=== PATIENT | female | born 1955 | race African-American/Black ===

== ENCOUNTER 2024-04-27 13:15 | Inpatient (IN) | payer MEDICARE, MEDICAID ==
[~2024-04-27] VITALS: Ht 162.6 cm; Wt 69.9 kg
[~2024-04-27 13:15] MED LIST: ASPI-1406 PO; ATOR40TA70 MT; CINA30 PO; HYDR-4001 MT; SEVE800T8 PO
[2024-04-27 14:47] LABS: CHLORIDE 101 mEq/L (98-107); SODIUM 143 mEq/L (136-145)
[2024-04-27 14:48] LABS: CARBON DIOXIDE 37 mEq/L (21-32)
[2024-04-27 14:49] LABS: CALCIUM 9.2 mg/dL (8.7-10.4)
[2024-04-27 14:51] LABS: BASOPHILS % 0.7 % (0.0-2.0); DIFFERENTIAL COMMENT 0; EOSINOPHILS % 4.1 % (0.0-5.0); LYMPHOCYTES % 10.4 % (20.0-50.0); MEAN CORPUSCULAR HGB CONC 31.2 g/dL (31.0-37.0); MEAN PLATELET VOLUME 9.7 fl (7.4-10.4); MONOCYTES % 11.9 % (2.0-8.0); NEUTROPHILS % 72.9 % (40.0-76.0); PLATELET 109 x1000/uL (130-400); RED BLOOD CELL COUNT 1.91 mill/uL (4.2-5.4); RED CELL DISTRIBUTION WIDTH 20.3 % (11.6-14.6); WHITE BLOOD COUNT 3.9 x1000/uL (4.5-11.0)
[2024-04-27 14:53] LABS: GLUCOSE 101 mg/dL (70-105)
[2024-04-27 14:54] LABS: HEMATOCRIT. 20.8 % (36.0-48.0); HEMOGLOBIN. 6.5 g/dL (12.0-16.0); UREA NITROGEN BLOOD 80 mg/dL (9-23)
[2024-04-27 14:55] LABS: ALANINE AMINOTRANSFERASE 13 IU/L (10-49); ALBUMIN 3.5 g/dL (3.2-4.8); ASPARTATE AMINOTRANSFERASE 21 IU/L (<34)
[2024-04-27 14:56] LABS: BILIRUBIN TOTAL 0.2 mg/dL (0.1-1.0); PROTEIN TOTAL 5.5 g/dL (6.0-8.3)
[2024-04-27 15:04] LABS: BILIRUBIN DIRECT < 0.1 mg/dL (<=3.0); CREATININE 10.8 mg/dL (0.6-1.0)
[2024-04-27] MEDS ORDERED: NITROGLYCERIN 0.4MG TABLET SL SL PRN (17:45)
[2024-04-27] MEDS ORDERED: GUAIFENESIN 200MG/10ML SUGAR FREE UDC PO PRN (17:45)
[2024-04-27] MEDS ORDERED: DOCUSATE SODIUM 100MG CAPSULE PO PRN (17:45)
[2024-04-27] MEDS ORDERED: IPRATROPIUM/ALBUTEROL 0.5-3(2.5)MG/3ML NEB HHN PRN (17:45)
[2024-04-27] MEDS ORDERED: CLONIDINE 0.1MG TABLET PO PRN (17:45)
[2024-04-27] MEDS ORDERED: ACETAMINOPHEN 325MG TABLET PO PRN ×2 (17:45)
[2024-04-27] MEDS ORDERED: ONDANSETRON HCL 4MG/2ML INJ IV PRN (17:45)
[2024-04-27 17:59] LABS: HEPATITIS B SURFACE ANTIGEN NEGATIVE (Negative)
[2024-04-27 18:20] LABS: HEPATITIS A AB IGM NEGATIVE (Negative); HEPATITIS B CORE AB IGM NEGATIVE (Negative)
[2024-04-27 18:21] LABS: HEPATITIS C AB NON REACTIVE (Neg) (Negative)
[2024-04-27 18:44] LABS: IRON 85 ug/dL (50-170)
[2024-04-27 18:45] LABS: TRIGLYCERIDE 83 mg/dL (0-150)
[2024-04-27 18:46] LABS: LDL CHOLESTEROL 45 mg/dL (5-100)
[2024-04-27 18:47] LABS: CHOLESTEROL 130 mg/dL (<200); HDL CHOLESTEROL 65 mg/dL (>65); PHOSPHORUS 4.6 mg/dL (2.5-4.9); TOTAL IRON BINDING CAPACITY 242 ug/dl (250-425)
[2024-04-27 18:50] LABS: FERRITIN 221 ng/mL (10-291); FOLIC ACID (FOLATE) SERUM > 20.00 ng/mL (>5.38); VITAMIN B12 SERUM 555 pg/mL (211-911)
[2024-04-27] MEDS: ATORVASTATIN CALCIUM 40MG TABLET PO SCH (23:02)
[2024-04-27] MEDS: EPOETIN ALFA-EPBX 4,000 UNIT/ML VIAL SUBCUT SCH (23:03)
[2024-04-28] VITALS (23 sets, daily range): BP systolic 70–174; BP diastolic 35–83; PULSE 55–94; RESP 10–20; TEMP 35.89176–37.00296; O2SAT 98–100
[2024-04-28] MEDS ORDERED: CINA90TA4 PO (05:48)
[2024-04-28] MEDS ORDERED: ZOLP10TA2 PO (05:49)
[2024-04-28] MEDS ORDERED: APIX2.5T PO (05:51)
[2024-04-28] MEDS ORDERED: FOLI-43 PO (05:52)
[2024-04-28] MEDS ORDERED: FOLI0.8T53 PO (05:53)
[2024-04-28 07:26] LABS: CALCIUM 9.6 mg/dL (8.7-10.4); CHLORIDE 101 mEq/L (98-107); POTASSIUM 5.3 mEq/L (3.5-5.1); SODIUM 139 mEq/L (136-145)
[2024-04-28 07:27] LABS: CARBON DIOXIDE 29 mEq/L (21-32)
[2024-04-28 07:28] LABS: CREATINE KINASE MB FRACTION 3.3 ng/mL (0.5-3.6)
[2024-04-28 07:32] LABS: GLUCOSE 80 mg/dL (70-105); UREA NITROGEN BLOOD 80 mg/dL (9-23)
[2024-04-28 07:44] LABS: HEMATOCRIT 26.4 % (36.0-48.0); HEMOGLOBIN 8.3 g/dL (12.0-16.0); MEAN CORPUSCULAR HEMOGLOBIN 33.7 pg (28.0-32.0); MEAN CORPUSCULAR HGB CONC 31.5 g/dL (31.0-37.0); PLATELET 109 x1000/uL (130-400); RED BLOOD CELL COUNT 2.47 mill/uL (4.2-5.4); RED CELL DISTRIBUTION WIDTH 23.2 % (11.6-14.6); WHITE BLOOD COUNT 3.8 x1000/uL (4.5-11.0)
[2024-04-28] MEDS ORDERED: LIDOCAINE HCL 1% 10 MG/ML 10ML VIAL ONE (07:57)
[2024-04-28 08:04] LABS: CREATININE 11.8 mg/dL (0.6-1.0)
[2024-04-28 08:05] LABS: TROPONIN I HIGH SENSITIVITY 42 ng/L (3.0-34)
[2024-04-28 08:10] LABS: PROTHROMBIN TIME 10.7 sec (9.6-11.0)
[2024-04-28] MEDS: FENTANYL CITRATE/PF 50MCG/ML 2ML VIAL IV SCH (09:00)
[2024-04-28] MEDS: CEFAZOLIN 1000MG PREMIX 50 ML IV ONE (09:00)
[2024-04-28] MEDS ORDERED: FENTANYL CITRATE/PF 50MCG/ML 2ML VIAL ONE (09:14)
[2024-04-28] MEDS: ASPIRIN 81MG TABLET PO SCH (10:43)
[2024-04-28] MEDS: CINACALCET HCL 30MG TABLET PO SCH (10:43)
[2024-04-28 13:08] LABS: CREATINE KINASE MB FRACTION 3.2 ng/mL (0.5-3.6)
[2024-04-29 00:05] VITALS: BP 156/50; PULSE 71; RESP 18; TEMP 36.61404; O2SAT 96
[2024-04-29 04:01] VITALS: BP 104/61; PULSE 70; RESP 20; TEMP 36.72516; O2SAT 100
[2024-04-29 08:00] VITALS: BP 131/59; PULSE 70; RESP 18; TEMP 36.61404; O2SAT 98
[2024-04-29 12:00] VITALS: BP 153/53; PULSE 67; RESP 18; TEMP 36.3918; O2SAT 97
[2024-04-29 12:15] LABS: POTASSIUM 4.6 mEq/L (3.5-5.1)
[2024-04-29 12:16] LABS: CALCIUM 9.3 mg/dL (8.7-10.4)
[2024-04-29 12:45] LABS: CREATININE 11.6 mg/dL (0.6-1.0)
[2024-04-29 16:00] VITALS: BP 140/60; PULSE 71; RESP 18; TEMP 36.3918; TEMP 36.39180; O2SAT 97
[2024-04-29 17:13] VITALS: BP 140/71; PULSE 60; TEMP 97.5; O2SAT 97
== END 2024-04-29 18:00 | disposition home or self-care (01) | DRG 466 ==
LOC: ER 13:15 → 8WST 23:24
PROVIDERS: ADMIT Hospitalist; ATTEND Hospitalist
PROC: 30233N1 Transfusion of Nonautologous Red Blood Cells into Peripheral Vein, Percutaneous Approach (ICD-10-PCS; 2024-04-27)
PROC: 0JPWXXZ Removal of Tunneled Vascular Access Device from Lower Extremity Subcutaneous Tissue and Fascia, External Approach (ICD-10-PCS; principal; 2024-04-28)
PROC: 0JH63XZ Insertion of Tunneled Vascular Access Device into Chest Subcutaneous Tissue and Fascia, Percutaneous Approach (ICD-10-PCS; 2024-04-28)
PROC: 06PYX3Z Removal of Infusion Device from Lower Vein, External Approach (ICD-10-PCS; 2024-04-28)
PROC: 06H033Z Insertion of Infusion Device into Inferior Vena Cava, Percutaneous Approach (ICD-10-PCS; 2024-04-28)
PROC: B549ZZA Ultrasonography of Inferior Vena Cava, Guidance (ICD-10-PCS; 2024-04-28)
PROC: 5A1D70Z Performance of Urinary Filtration, Intermittent, Less than 6 Hours Per Day (ICD-10-PCS; 2024-04-28)
DX: T82.42XA Displacement of vascular dialysis catheter, initial encounter (principal); I12.0 Hypertensive chronic kidney disease with stage 5 chronic kidney disease or end stage renal disease; D61.818 Other pancytopenia; N18.6 End stage renal disease; E78.5 Hyperlipidemia, unspecified; D64.9 Anemia, unspecified; E87.70 Fluid overload, unspecified; F17.210 Nicotine dependence, cigarettes, uncomplicated; Z60.2 Problems related to living alone; Z79.01 Long term (current) use of anticoagulants; Z79.82 Long term (current) use of aspirin; Z79.899 Other long term (current) drug therapy; Z99.2 Dependence on renal dialysis; Y83.8 Other surgical procedures as the cause of abnormal reaction of the patient, or of later complication, without mention of misadventure at the time of the procedure; Y92.89 Other specified places as the place of occurrence of the external cause
CPT/HCPCS: 36415; 36558; 36581; 71045; 77001; 80048; 80061; 80076; 82553; 82607; 82728; 82746; 83540; 83550; 83735; 84100; 84484; 85025; 85027; 86705; 86709; 86850; 86900; 86920; 87340; 90935; 93005; 93970; 99152; 99153; 99291; C1750; C1769; J0690; J0885; J1642; J3010; J3490; P9016; G0500